=== PATIENT | male | born 1965 | race Caucasian/White ===

== ENCOUNTER 2025-03-07 14:27 | Emergency (ER) | payer BC, SELFPAY ==
--- NOTE | ~2025-03-07 | XR_ITS ---
EXAMINATION: XR chest 2V, 03/07/2025 14:51 GLASS TECHNICIAN HISTORY: sob, lower extremity swelling off/on 3 weeks nonsmoker COMPARISON: No comparisons available. Technique: 2 views obtained. Findings: The lungs are clear, no effusion. No pneumothorax. Heart is normal size. Mediastinal and hilar contours are within normal limits. Bony thorax no acute abnormality. Impression: No acute cardiopulmonary abnormality. Reviewed, dictated and finalized at location P. S TECHNICIAN Impression: No acute cardiopulmonary abnormality.
--- NOTE | 2025-03-07 14:29 | ED.SOB ---
HPI - SOB/Dyspnea General Chief Complaint: Shortness of Breath/Dyspnea Stated Complaint: SOB Time Seen by Provider: 03/07/25 14:29 Source: patient Mode of arrival: ambulatory Limitations: no limitations History of Present Illness HPI Narrative: Johnnie is a 59 year old male with type 2 diabetes and hyperlipidemia presenting to the clinic today with c/o shortness of breath, headache, bilateral lower extremity swelling, cough, and congestion. States shortness of breath comes and goes. Woke up from sleep last night gasping for air and had to sit on the side of the bed. Feels like he is not able to get air into his lungs when this happens. He does snore-has had sleep study in past and stated it showed mild sleep apnea. Was not prescribed any treatment for the sleep apnea. Is coughing up yellow brown phlegm and has had some sweats and chills. No recorded fever. Denies any chest pain. No history of any blood clotting disorders or CHF. Related Data Home Medications ?Medication ?Instructions ?Recorded ?Confirmed ?Last Taken ?Type metformin 500 mg tablet,extended mg PO 03/07/25 Unknown History release 24 hr rosuvastatin 5 mg tablet mg 03/07/25 Unknown History tirzepatide 2.5 mg/0.5 mL mg subcut 03/07/25 Unknown History subcutaneous pen injector (Mounjaro) Allergies Allergy/AdvReac Type Severity Reaction Status Date / Time No Known Allergies Allergy Verified 03/07/25 15:02 Review of Systems Review of Systems: Pertinent positives per HPI. Patient denies any rash, headache, visual changes, dizziness, chest pain, palpitations, nausea, vomiting, diarrhea, constipation, abdominal pain, or any urinary issues. [facility] Comments At the time of my signature, I reviewed and agree with the nursing past medical, surgical, social, and family history. There is no relevant family history pertinent to the patient complaint. Exam Narrative: General: Well-developed, obese, in no apparent distress Head: Normocephalic, atraumatic Eyes: Pupils equally round and reactive to light bilaterally, EOM intact, sclera and conjunctive clear, no discharge, lids normal Ears: TMs intact and congested, ear canals clear, no drainage, grossly hearing normal. Nose: Nares patent, no discharge, mild inflammation, no sinus tenderness. Mouth: Oral pharynx without lesions or masses, good dentition, MMM. Neck: Supple, trachea midline, no enlargement of anterior or posterior cervical nodes, no thyroid masses or goiter palpable. Cardio: Regular rate and rhythm, s1 and s2 normal, no murmur appreciated. Resp: Crackles over the RLL, no rhonchi, wheezing or rubs Course Course Level of Care: Express Care Visit Vital Signs Vital signs: Vital Signs Temperature 36.6 C 03/07/25 14:40 Pulse Rate 81 03/07/25 14:40 Respiratory Rate 20 03/07/25 14:40 Blood Pressure 117/98 H 03/07/25 14:40 Pulse Oximetry 98 03/07/25 14:40 Oxygen Delivery Room Air 03/07/25 14:40 Temperature 36.6 C 03/07/25 14:40 Pulse Rate 81 03/07/25 14:40 Respiratory Rate 20 03/07/25 14:40 Blood Pressure 117/98 H 03/07/25 14:40 Pulse Oximetry 98 03/07/25 14:40 Oxygen Delivery Room Air 03/07/25 14:40 Transfer Transfered to: [facility] Transportation: Other (Private car) Transfer rationale: SOB/ BLE- r/o CHF vs Pneumonia Accepting physician: Dr. Gil Transfer comments: Private car MDM MDM Narrative Medical decision making narrative: At the time of visit patient is resting comfortably on the exam table. Patient appears to be nontoxic. C/o shortness of breath, bilateral lower extremity swelling, headache, cough, and congestion. States shortness of breath comes and goes. Woke up from sleep last night gasping for air and had to sit on the side of the bed. Feels like he is not able to get air into his lungs when this happens. He does snore-has had sleep study in past and stated it showed mild sleep apnea. Was not prescribed any treatment for the sleep apnea. Is coughing up yellow brown phlegm and has had some sweats and chills. No recorded fever. Denies any chest pain. No history of any blood clotting disorders or CHF. On exam patient has bilateral TM intact and congested, no nasal drainage, mild anterior turbinate inflammation, oropharynx normal, crackles over the RLL, heart rate regular rate/rhythm. EKG and chest x-ray was ordered. EKG: EKG shows sinus rhythm with occasional PVC with a heart rate of 92 beats per minute. No ST elevation or depression noted. Borderline right axis deviation with a nonspecific ST and T-wave abnormality. No comparison EKG available. Diagnostics: Chest x-ray was performed and radiologist read as no acute cardiopulmonary diseases however I feel like the patient likely has a pleural effusion versus pneumonia with cardiomegaly Plan: I suspect patient has CHF vs super imposed pneumonia, Recommend transfer to the ED for further evaluation. Patient would like to go to [facility] ER in [place], [place] for further evaluation. Contacted [facility], report was given for continuity of care- Dr. Gil accepts patient for transfer. At this time patient VS are stable with Spo2 98% on room air. Patient to drive to the ED. Wells criteria for PE: 0.0?points Low risk group: 1.3% chance of PE in an ED population. Another study assigned scores <= as ?PE Unlikely? and had a 3% incidence of PE. Differential Diagnosis Differential Diagnosis: Differential diagnostic considerations for shortness of breath include respiratory failure, pulmonary embolus, ACS, COPD, CHF, pneumonia, pneumothorax, asthma, metabolic disorder, anxiety. Imaging Data Attestation: I personally reviewed and interpreted this imaging study as follows: My impression: Likely pleural effusion versus pneumonia. Radiologist's impression: ITS Impressions Chest X-Ray 03/07/25 15:16 Impression: No acute cardiopulmonary abnormality. ECG Data EKG #1: Attestation: I personally reviewed and interpreted this ECG as follows: ECG completion date: 03/07/25 ECG completion time: 14:51 Interpretation: EKG shows sinus rhythm with occasional PVC with a heart rate of 92 beats per minute. No ST elevation or depression noted. Borderline right axis deviation with a nonspecific ST and T-wave abnormality. [place] interval is 164 milliseconds, QRS durations 106 milliseconds, QT-QTC is 375-425 milliseconds, P-R-T axis is 65 94 60. No comparison EKG available. Discharge Plan Discharge Clinical Impression: SOB (shortness of breath), Bilateral leg edema Patient Disposition: Acute Care Hospital Condition: Stable Patient Language: Ug[place] Prescriptions: No Action metformin 500 mg tablet extended release 24 hr PO rosuvastatin 5 mg tablet Mounjaro 2.5 mg/0.5 mL pen injector SUBCUT Follow-up/Referrals: UNKNOWN,DOCTOR [Non-Staff] Time of Disposition: 15:30 Quality NIHSS Nursing Documentation ED NIHSS nursing documentation: reviewed/agree
[2025-03-07 14:40] VITALS: BP 117/98; PULSE 81; RESP 20; TEMP 36.6; O2SAT 98
--- NOTE | 2025-03-07 14:47 | ECG_ITS ---
Test Date: 2025-03-07 14:51:08 Measurements Intervals [place] Rate: 92 P: 65 MO: 164 QRS: 94 QRSD: 106 T: 60 QT: 375 QTc: 466 Interpretive Statements SINUS RHYTHM WITH OCCASIONAL VENTRICULAR PREMATURE COMPLEXES RIGHT AXIS DEVIATION CANNOT R/O SEPTAL INFARCT, AGE INDETERMINATE NONSPECIFIC ST & T-WAVE ABNORMALITY DIFFUSE LEADS BASELINE ARTIFACT- I, II, III, AVR, AVL ABNORMAL ECG No previous ECG available for comparison Electronically Signed On 03-07-2025 15:52:19 [employer]EL CHECK[employer] by Jim Benitez D.O.
== END 2025-03-07 15:35 | disposition short-term general hospital (02) ==
PROVIDERS: Emergency Provider Nurse Practitioner Family; PCP Student in an Organized Health Care Education/Training Program
DX: R06.02 Shortness of breath (principal); R60.0 Localized edema; E11.9 Type 2 diabetes mellitus without complications; Z79.84 Long term (current) use of oral hypoglycemic drugs; Z79.85 Long-term (current) use of injectable non-insulin antidiabetic drugs; E78.00 Pure hypercholesterolemia, unspecified
CPT/HCPCS: 71046; 93005; 99203; G0463